=== PATIENT | male | born 1975 | race Caucasian/White ===

== ENCOUNTER 2017-05-17 19:12 | Emergency (ER) | payer OTHER ==
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
--- NOTE | 2017-05-17 20:19 | XR ---
EXAMINATION TYPE: XR sacrum coccyx DATE OF EXAM: 05/17/2017 COMPARISON: NONE HISTORY: Pain TECHNIQUE: 3 views FINDINGS: I see no fracture. Segments have normal alignment. Sacroiliac joints appear normal. IMPRESSION: Normal sacrum and coccyx exam.
[2017-05-17 20:32] VITALS: BP 123/56; PULSE 100; RESP 24; TEMP 98.3
== END 2017-05-17 20:30 | disposition home or self-care (01) ==
LOC: EC 19:12
DX: S30.0XXA Contusion of lower back and pelvis, initial encounter (principal); F17.200 Nicotine dependence, unspecified, uncomplicated; Y04.0XXA Assault by unarmed brawl or fight, initial encounter
CPT/HCPCS: 72220; 99284

== ENCOUNTER 2017-05-17 21:21 | Emergency (ER) | payer OTHER ==
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
--- NOTE | 2017-05-17 22:36 | CT ---
EXAMINATION TYPE: CT brain wo con DATE OF EXAM: 05/17/2017 COMPARISON: NONE HISTORY: Laceration to right superior orbital area. CT DLP: 801.5 mGycm. Automated Exposure Control for Dose Reduction was Utilized. TECHNIQUE: CT scan of the head is performed without contrast. FINDINGS: Ventricles of normal size. There is no mass effect nor midline shift. There is no sign of i ntracranial hemorrhage. The calvarium is intact. CONCLUSION: Negative CT scan of the brain. Laceration deformity noted over the right frontal scalp region.
[2017-05-17 23:37] VITALS: BP 122/80; PULSE 80; RESP 16; TEMP 98.5
== END 2017-05-17 23:36 | disposition home or self-care (01) ==
LOC: EC 21:21
DX: S01.111A Laceration without foreign body of right eyelid and periocular area, initial encounter (principal); V17.4XXA Pedal cycle driver injured in collision with fixed or stationary object in traffic accident, initial encounter; Y92.410 Unspecified street and highway as the place of occurrence of the external cause; Y93.55 Activity, bike riding
CPT/HCPCS: 12013; 70450; 99284